=== PATIENT | female | born 1995 | race Caucasian/White ===

== ENCOUNTER 2017-06-05 17:08 | Emergency (ER) | payer OTHER ==
[2017-06-05 17:26] VITALS: BP 155/84; PULSE 106; TEMP 99.1; BMI 31.4
--- NOTE | 2017-06-05 17:27 | PDOC ---
Rapid Medical Evaluation Time Seen by Provider: 06/05/17 17:23 Medical Evaluation: Allergies Allergy/AdvReac Type Severity Reaction Status Date / Time No Known Allergies Allergy Verified 11/19/15 17:11 06/05/17 17:24 I have performed a brief in-person evaluation of this patient. The patient presents with a chief complaint of: Menorrhagia. H/o irreg menses, here w/ vag bleed x 1 month, using 1 tampon and 1 pad/hr. H/o MDD/anxiety Pertinent physical exam findings:Unremarkable I have ordered the following:cbc/chem/ua/upreg The patient will proceed to the ED for further evaluation.
== END 2017-06-05 19:15 | disposition left against medical advice (07) ==
LOC: JER 17:08
DX: Z53.21 Procedure and treatment not carried out due to patient leaving prior to being seen by health care provider (principal)
CPT/HCPCS: 99281-25